=== PATIENT | male | born 1965 | race Caucasian/White ===

== ENCOUNTER 2020-01-27 12:10 | Outpatient (CLI) | payer OTHER, SELFPAY ==
--- NOTE | ~2020-01-27 | XR_ITS ---
EXAMINATION: XR abdomen/kub 1V INDICATION: Pelvic pain in a male TECHNIQUE: Supine views of the abdomen were obtained on 2 radiographs. COMPARISON: None FINDINGS: A moderate volume of colonic stool is present. A gas-filled bowel loop of the mid abdomen f elt to reflect tortuous colon. No abnormal calcifications are identified. There is mild osteoarthriti s of the hips. IMPRESSION: 1. Moderate volume of colonic stool. Reviewed, dictated and finalized at location A.
== END 2020-01-27 12:11 | disposition home or self-care (01) ==
PROVIDERS: PCP Family Medicine Sports Medicine
DX: R10.2 Pelvic and perineal pain (principal)
CPT/HCPCS: 74018

== ENCOUNTER 2020-06-10 15:56 | Outpatient (CLI) | payer OTHER, SELFPAY ==
--- NOTE | ~2020-06-10 | US_ITS ---
EXAMINATION: US retroperitoneal comp DATE: 06/10/2020 16:30 INDICATION: Chronic cystitis without hematuria. TECHNIQUE: Multiple ultrasound grayscale images of the kidneys were obtained. COMPARISON: None. FINDINGS: The right kidney measures 11.5 x 5.3 x 3.9 cm. The left kidney measures 11.2 x 4.6 x 4.6 cm. The kidn eys demonstrate normal parenchymal echogenicity. There is no hydronephrosis. There is a bladder diver ticulum on the right. IMPRESSION: 1. Bladder diverticulum on the right. Reviewed, dictated and finalized at location A.
== END 2020-06-10 15:57 | disposition home or self-care (01) ==
LOC: ANHIMG 15:58
PROVIDERS: Visit Provider Urology
DX: N30.20 Other chronic cystitis without hematuria (principal); N32.3 Diverticulum of bladder
CPT/HCPCS: 76770

== ENCOUNTER → 2021-06-18 07:49 | Outpatient (CLI) | payer OTHER, SELFPAY ==
--- NOTE | ~2021-06-18 | CT_ITS ---
EXAMINATION: CT abdomen pelvis wo con DATE: 06/18/2021 08:28 INDICATION: Chronic cystitis without hematuria TECHNIQUE: Computed tomography (CT) of the abdomen and pelvis was performed without intravenous contr ast. The dose-length product (DLP) was 571.97 mGy-cm. Automated exposure control and iterative recons truction technique were employed. COMPARISON: None FINDINGS: Minimal dependent atelectasis is present in the lung bases. The heart size is normal. Punct ate calcifications in an otherwise normal spleen likely represent healed granulomatous disease. The l iver, pancreas, gallbladder, and adrenal glands are normal. The kidneys are unremarkable. No stones a re identified in the kidneys, ureters, or bladder. There is no hydronephrosis or hydroureter. There i s a large diverticulum of the right lateral bladder wall. There is a small diverticulum of the left p osterolateral bladder wall. There is mild wall thickening of the urinary bladder. There is mild lumba r spondylosis. IMPRESSION: 1. Mild wall thickening of the urinary bladder, consistent with history of chronic cystitis. 2. Bladder diverticula. Reviewed, dictated and finalized at location B. IMPRESSION: 1. 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 2. Bladder diverticula.
--- NOTE | ~2021-06-18 | XR_ITS ---
EXAMINATION: XR abdomen/kub 1V INDICATION: Chronic cystitis without hematuria TECHNIQUE: Supine views of the abdomen were obtained on 2 radiographs. COMPARISON: 01/27/2020 FINDINGS: The bowel gas pattern is normal. No abnormal calcifications are identified. There is mild o steoarthritis of the hips. The visualized lung bases are clear. IMPRESSION: 1. No radiographic correlate for the patient's symptoms. Reviewed, dictated and finalized at location B.
== END ==
PROVIDERS: PCP Emergency Medicine; Visit Provider Urology
DX: M47.816 Spondylosis without myelopathy or radiculopathy, lumbar region (principal); N32.3 Diverticulum of bladder
CPT/HCPCS: 74018; 74176

== ENCOUNTER 2021-11-03 10:40 | Outpatient (CLI) | payer OTHER, SELFPAY ==
[2021-11-03 11:31] LABS: Basophils Percent Auto 0.4 % (0.2-1.2); Eosinophils Percent Auto 0.3 % (0-4.4); Hematocrit 43.4 % (42.0-52.0); Hemoglobin 15.1 g/dL (14.0-18.0); Immature Granulocyte Absolute 0.03 K/mm3 (0.00-0.031); Immature Granulocyte Percent A 0.4 % (0-0.5); Lymphocytes Absolute Auto 1.03 K/mm3 (0.9-3.2); Lymphocytes Percent Auto 15.2 % (18.3-44.2); Mean Corpuscular HGB Conc 34.8 g/dl (32-36); Mean Corpuscular Hemoglobin 32.1 pg (26-34); Mean Corpuscular Volume 92.1 fl (80-100); Mean Platelet Volume 9.5 fl (7.4-10.4); Monocytes Absolute Auto 0.7 K/mm3 (0.1-0.6); Monocytes Percent Auto 10.9 % (2.6-8.5); Neutrophils Absolute Auto 4.9 K/mm3 (1.3-6.7); Neutrophils Percent Auto 72.8 % (45.5-73.1); Platelet Count Result 195 k/mm3 (150-375); Red Blood Count 4.71 M/mm3 (4.6-6.20); Red Cell Distribution Width 13.1 % (11.5-14.5); White Blood Count 6.8 K/mm3 (4.5-10.0)
[2021-11-03 11:40] LABS: Estimated Glomerular Filt Rate > 60
== END 2021-11-03 10:41 | disposition home or self-care (01) ==
LOC: ANHLAB 10:44
PROVIDERS: PCP Emergency Medicine; Visit Provider Nurse Practitioner Adult Health
DX: N39.0 Urinary tract infection, site not specified (principal)
CPT/HCPCS: 36415; 82565; 85025; 87086

== ENCOUNTER 2023-02-02 10:04 | Observation (INO) | payer OTHER, SELFPAY ==
[2023-02-02] VITALS (7 sets, daily range): BP systolic 116–142; BP diastolic 75–86; PULSE 68–108; RESP 14–19; TEMP 36.1–36.6; O2SAT 99–100; BMI 22.8
--- NOTE | ~2023-02-02 | CT_ITS ---
EXAMINATION: CT abdomen pelvis w con DATE: 02/02/2023 12:35 INDICATION: Melanoma. Generalized abdominal discomfort. TECHNIQUE: Computed tomography (CT) of the abdomen and pelvis was performed with 100 cc Omnipaque 350 intravenous contrast. The dose-length product was 398.74 mGy-cm. Automated exposure control and iterative reconstruction technique were employed. COMPARISON: CT dated 06/18/2021 FINDINGS: Lung bases are unremarkable. Heart size normal. No significant pleural or pericardial effus ion. Fatty infiltration of the liver. The spleen, pancreas, adrenal glands and kidneys are unremarkab le. Gallbladder is present. Prostate gland is enlarged. There is a bladder diverticulum posteriorly. Mild bladder wall thickening. Colonic diverticulosis without evidence for acute diverticulitis. No fr ee air or free fluid. Gallbladder is present. There is atherosclerosis without aneurysm. No lymphaden opathy. Mildly accentuated chronic wedge-shaped appearance to the vertebrae at the thoracolumbar junc tion. IMPRESSION: 1. Mild bladder wall thickening. Cannot exclude cystitis. There is a bladder diverticulum along the p osterior margin of the bladder. Reviewed, dictated and finalized at location L. IMPRESSION: 1. Mild bladder wall thickening. Cannot exclude cystitis. There is a bladder di verticulum along the posterior margin of the bladder.
[2023-02-02 10:48] LABS: Alanine Aminotransferase 32 U/L (6-50); Alkaline Phosphatase 45 U/L (38-126); Anion Gap 2 mmol/L (8-16); Aspartate Amino Transferase 37 U/L (17-59); Bilirubin,Total 0.5 mg/dL (0.2-1.3); Blood Urea Nitrogen 19 mg/dL (9-20); Calcium 8.6 mg/dL (8.4-10.2); Carbon Dioxide 31 mmol/L (22-30); Chloride 102 mmol/L (98-107); Estimated CRCL calculation 84 ml/min; Estimated Glomerular Filt Rate > 60; Glucose 106 mg/dL (65-110); Potassium 4.5 mmol/L (3.4-5.0); Sodium 135 mmol/L (137-145)
[2023-02-02 10:50] LABS: INR 0.9; Partial Thromboplastin Time 30.3 SECONDS (22.3-36.8); Prothrombin Time 12.8 Seconds (11.1-14.7)
[2023-02-02 10:51] LABS: Basophils Percent Auto 0.5 % (0.2-1.2); Eosinophils Percent Auto 0.7 % (0-4.4); Hemoglobin 13.1 g/dL (14.0-18.0); Immature Granulocyte Absolute 0.02 K/mm3 (0.00-0.031); Immature Granulocyte Percent A 0.3 % (0-0.5); Lymphocytes Absolute Auto 1.32 K/mm3 (0.9-3.2); Lymphocytes Percent Auto 21.7 % (18.3-44.2); Mean Corpuscular HGB Conc 32.8 g/dl (32-36); Mean Corpuscular Hemoglobin 30.9 pg (26-34); Mean Corpuscular Volume 94.3 fl (80-100); Mean Platelet Volume 9.6 fl (7.4-10.4); Monocytes Absolute Auto 0.4 K/mm3 (0.1-0.6); Monocytes Percent Auto 6.3 % (2.6-8.5); Neutrophils Absolute Auto 4.3 K/mm3 (1.3-6.7); Neutrophils Percent Auto 70.5 % (45.5-73.1); Platelet Count Result 203 k/mm3 (150-375); Red Blood Count 4.24 M/mm3 (4.6-6.20); Red Cell Distribution Width 13.4 % (11.5-14.5); White Blood Count 6.1 K/mm3 (4.5-10.0)
--- NOTE | 2023-02-02 11:52 | ED.GENADULT ---
HPI - General Adult General Chief complaint: GI Bleed <WALT Church Last Filed: 02/02/23 19:49> Stated complaint: blood in stool <WALT Church Last Filed: 02/02/23 19:49> Time Seen by Provider: 02/02/23 11:13 <María Green PA-C - Last Filed: 02/02/23 19:49> History of Present Illness HPI narrative: 57-year-old male reports for evaluation of melena and hematochezia since last night. Patient states he had a bowel movement at 1999 with generalized abdominal discomfort . States when he looked in the toilet, his stool was dark and tarry with bright red blood in the toilet bowl and when he wiped. States this morning it happened again. He denies history of same. States he was told many years ago that he had GERD, no history of PUD. He had an EGD in 2009 that was normal and a colonoscopy greater than 10 years ago that was normal. He denies overt abdominal pain, chest discomfort when he has a bowel movement. Denies back pain, fever, chest pain or shortness of breath, syncope or lightheadedness. Of note, patient has to self cath his bladder due to an atrophic bladder. He gets frequent urinary tract infections. He was treated approximately 2 weeks ago with Augmentin for a UTI. He underwent bladder surgery in June to have multiple diverticuli removed, there is 1 remaining. <María Green PA-C - Last Filed: 02/02/23 19:49> Related Data Home medications: Home Medications Medication Instructions Recorded Confirmed fluoxetine 40 mg capsule 40 mg PO DAILY 02/02/23 02/02/23 <WALT Church Last Filed: 02/02/23 19:49> Allergies/adverse reactions: Allergies Allergy/AdvReac Type Severity Reaction Status Date / Time No Known Allergies Allergy Verified 02/02/23 16:23 <WALT Church Last Filed: 02/02/23 19:49> Review of Systems Review of Systems: CONSTITUTIONAL: Denies fever, chills EYES: Denies visual changes, redness, or discharge. ENT: Denies rhinorrhea, congestion, sore throat, or otalgia. CARDIOVASCULAR: Denies chest pain, palpitations, or edema. RESPIRATORY: Denies cough or dyspnea. GASTROINTESTINAL: See HPI GENITOURINARY: Denies dysuria or hematuria. SKIN: Denies rash or itching. MUSCULOSKELETAL: Denies back pain, joint pain, or myalgia. NEUROLOGIC: Denies headache, numbness, dizziness, or weakness. PSYCHIATRIC: Denies anxiety or depression. <María Green PA-C - Last Filed: 02/02/23 19:49> [facility] Past Medical History Medical History: Medical History (Updated 02/02/23 @ 23:30 by Rosibel Pena PA-C) Bladder diverticulum Gastroesophageal reflux disease Neurogenic bladder <María Green PA-C - Last Filed: 02/02/23 19:49> Surgical History Surgical History: Surgical History (Updated 02/02/23 @ 23:26 by Rosibel Pena PA-C) History of appendectomy History of bladder surgery Surgery for bladder diverticulum performed at [facility] in [place]. <María Green PA-C - Last Filed: 02/02/23 19:49> Family History Family History: Family History Father Malignant neoplasm of prostate Lymphoma <María Green PA-C - Last Filed: 02/02/23 19:49> Social History Social History: Social History (Updated 02/02/23 @ 20:37 by Rosibel Pena PA-C) Social History: Surrogate medical decision maker: Micaela Jones, spouse Code status: Full code. Smoking status: Former smoker Alcohol intake: current Drinks per week: 1 Substance use: never Lack of Transportation: No Lack of Food: Never True Current Housing: I Have Housing Concerned About Future Housing: No Difficulty Paying Gas/Electric Bills: No Difficulty Paying for Meds: No Currently Unemployed: No Education: Don't Know Difficulty w/ Childcare or Family Care: No Spiritual care concerns: No <María Green PA-C - Last Shai
[2023-02-02] MEDS: PANTOPRAZOLE SODIUM IV 40 MG VIAL 80 MG IV PUSH (12:22)
[2023-02-02] MEDS: SODIUM CHLORIDE 0.9% IV 1,000 ML 999 ML IV CONT (12:22)
[2023-02-02 12:31] LABS: Lactic Acid Reflex 1.1 mmol/L (0.7-2.0); Lipase 89 U/L (23-300)
[2023-02-02] MEDS: PANTOPRAZOLE SODIUM IV 80 MG in SODIUM CHLORIDE 0.9% IV 500 ML 50 MG IV CONT (13:00)
[2023-02-02 13:17] LABS: Appearance Urine Clear (Clear); Bilirubin Urine Negative (Negative); Blood Urine Negative (Negative); Color Urine Yellow (Yellow); Glucose Urine UA Negative (Negative); Ketones Urine Negative (Negative); Leukocyte Esterase Ur Negative LEU/UL (Negative); Nitrate Urine Negative (Negative); Protein Urine Negative (Negative); Specific Grav Ur 1.019 (1.001-1.035); Urobilinogen Urine 0.2 mg/dL (<2.0)
[2023-02-02 13:24] LABS: Add Urine Microscopic? NO
--- NOTE | 2023-02-02 14:01 | WPDGICN ---
Assessment and Plan Assessment and plan (1) Hematochezia: Code(s): K92.1 - Melena Status: Acute Assessment and Plan: He has never had this before. It began last night with passing black stool and noticing of red tinge at the edge of the stool in the bowl and also red blood when he wipes himself. He has had no abdominal pain. He may have diverticular bleed although because he has almost black stool as in the picture that he showed me, he may have an upper gastrointestinal bleed. We will schedule him for EGD and colonoscopy to be done tomorrow. He will be covered with PPI. Hemoglobin is 13.1 of present, down from 15.1 last year (2) Neurogenic bladder: Code(s): N31.9 - Neuromuscular dysfunction of bladder, unspecified Status: Acute Assessment and Plan: he must self catheterize every day because of urinary retention. GI Consult Note Consult date/time: 02/02/23 14:01 HPI: Woodrow Jones is a 57 year old male Who presented to the emergency room today with complaints of rectal bleeding. Last night he began to see blood in his stools. His stools were stringy and black, tarry and he would see scant red blood when he would wipe himself. The same thing happened again this morning. He has had no abdominal pain. He denies nausea or vomiting. His appetite has been good; there has been no weight loss. He denies chronic heartburn and dysphagia. He does not use NSAIDs on a regular basis. His last colonoscopy was at least 10 years ago. His only chronic medical problems the fact that he has a neurogenic bladder. He had surgery at [facility] to remove a diverticulum. He needs to self catheterize every day because of urinary retention. He has had several UTIs. Review of Systems Review of Systems: All systems reviewed & are unremarkable except as noted in HPI and below Meds Home Medications and Allergies Allergies Allergy/AdvReac Type Severity Reaction Status Date / Time No Known Allergies Allergy Verified 02/02/23 11:21 Vital Signs Vital Signs - 24 hr 02/02/23 10:06 02/02/23 11:22 02/02/23 12:21 Temperature 36.6 C Pulse Rate 92 81 76 Respiratory Rate 18 17 Blood Pressure 133/75 126/81 120/77 Pulse Oximetry 100 100 Oxygen Delivery Room Air 02/02/23 12:21 02/02/23 12:21 02/02/23 13:03 Temperature Pulse Rate 83 108 H 86 Respiratory Rate 19 Blood Pressure 137/81 116/80 142/80 H Pulse Oximetry 99 Oxygen Delivery Exam Const: General: cooperative and healthy appearing Orientation/consciousness: patient oriented x3 HENMT: Head: normal to inspection Ears: hearing grossly normal bilaterally Mouth: Yes Normal oral and palatal mucosa present Eyes: General: appearance normal, both eyes and all related structures Neck: Neck: normal visual inspection Chest: Chest palpation & inspection: normal inspection of the chest Resp: Effort & Inspection: normal respiratory effort Auscultation: clear to auscultation bilaterally Cardio: Rate: regular rate Rhythm: regular rhythm GI: Inspection: normal to inspection GI Palp: No abdominal tenderness, No Guarding due to palpation present (GI), Yes No hepatosplenomegaly present and No Hernia present Auscultation: normal bowel sounds Skin: General skin exam: normal color and no jaundice Neuro: General: patient oriented x3 Speech: normal speech Results Labs 02/02/23 10:32 02/02/23 10:32 Labs: Short CBC 02/02/23 Range/Units 10:32 WBC 6.1 (4.5-10.0) K/mm3 Hgb 13.1 L (14.0-18.0) g/dL Hct 40.0 L (42.0-52.0) % Plt Count 203 (150-375) k/mm3 BMP 02/02/23 10:32 Sodium 135 L Potassium 4.5 Chloride 102 Carbon Dioxide 31 H BUN 19 Creatinine 1.00 Glucose 106 Calcium 8.6 Liver Function 02/02/23 Range/Units 10:32 Total Bilirubin 0.5 (0.2-1.3) mg/dL AST 37 (17-59) U/L ALT 32 (6-50) U/L Alkaline Phosphatase 45 (38-126) U
[2023-02-02] MEDS: SODIUM CHLORIDE 0.9% IV 1,000 ML 125 ML IV CONT ×2 (14:06→21:52)
[2023-02-02 14:18] LABS: Hematocrit 36.1 % (42.0-52.0)
[2023-02-02] MEDS: BISACODYL 5 MG TABLET EC 20 MG PO (16:06)
--- NOTE | 2023-02-02 16:12 | ADMGEN ---
This patient, Woodrow Jones, was admitted to [facility] Surg Room 312-01. Patient/family oriented to hospital policies and general routines including ID bracelet, bed and alarms, visiting hours, pain management, procedures, bathroom and other care routines, personal items, smoking policy, room service/diet, and visiting hours. Information on how to activate the Rapid Response Team has been discussed. Patient/Family are encouraged to report perceived risks to care and to ask questions if they do not understand what they are told or what they should do. Report from María Elena in ER.
[2023-02-02] MEDS: polyethylene glycoL 3350 238 GM BOTTLE PO (16:33)
[2023-02-02 20:23] LABS: Hematocrit 38.5 % (42.0-52.0); Hemoglobin 12.8 g/dL (14.0-18.0)
--- NOTE | 2023-02-02 20:34 | PM.IMHP ---
H&P: HPI History of Present Illness Date/Time: 02/02/23 20:00 Chief Complaint: Blood in stool. Narrative: This is a remarkably healthy and very pleasant 57-year-old male with history of neurogenic bladder and bladder diverticula which was repaired at [facility] who presented to the emergency department via private vehicle from home for evaluation of blood in stool. The patient provides the following history. Last evening he had the sudden urge to have a bowel movement and he noticed that his stool was dark in color and admixed with bright red blood. A similar episode occurred this morning and he came in for evaluation. His bowel movements have been painless and he denies abdominal and rectal pain. He does not struggle or strain to have bowel movements and has no known history of hemorrhoids. Colonoscopy greater than 10 years ago was reportedly unremarkable. He had an upper endoscopy in 2009 for evaluation of hoarseness and that was also unremarkable. His vital signs were stable on arrival to the emergency department. Pertinent labs in the ED include a hemoglobin of 13.1, hematocrit 40%, and a lactic acid level 1.1. CT of the abdomen/pelvis did not show any acute findings. He is being admitted in this setting for close monitoring and GI consultation. At the time my evaluation he is resting comfortably and is doing a bowel prep. He continues to pass dark stools admixed with bright red blood. He denies syncope, near syncope, epigastric and abdominal pain, and bloating. Review of Systems Review of Systems: Reviewed. He has neurogenic bladder and does self catheterization. Prior to his surgery for bladder diverticulum, he was getting frequent urinary tract infections but that has improved remarkably since his surgery. He had his 1st urinary tract infection for quite some time about 2 weeks ago and he finished Augmentin. He does not have any symptoms to suggest GERD or indigestion. He does not take NSAIDs on a regular basis. Except as documented, all other systems were reviewed and are negative. [facility] Past Medical History Medical History (Updated 02/02/23 @ 23:30 by Rosibel Pena PA-C) Bladder diverticulum Gastroesophageal reflux disease Neurogenic bladder Surgical History Surgical History (Updated 02/02/23 @ 23:26 by Rosibel Pena PA-C) History of appendectomy History of bladder surgery Surgery for bladder diverticulum performed at [facility] in [place]. Family History Family History Father Malignant neoplasm of prostate Lymphoma Social History Social History (Updated 02/02/23 @ 20:37 by Rosibel Pena PA-C) Social History: Surrogate medical decision maker: Micaela Jones, spouse Code status: Full code. Smoking status: Former smoker Alcohol intake: current Drinks per week: 1 Substance use: never Lack of Transportation: No Lack of Food: Never True Current Housing: I Have Housing Concerned About Future Housing: No Difficulty Paying Gas/Electric Bills: No Difficulty Paying for Meds: No Currently Unemployed: No Education: Don't Know Difficulty w/ Childcare or Family Care: No Spiritual care concerns: No Meds Home Medications and Allergies Home Medications Medication Instructions Recorded Confirmed Type fluoxetine 40 mg capsule 40 mg PO DAILY 02/02/23 02/02/23 History Allergies Allergy/AdvReac Type Severity Reaction Status Date / Time No Known Allergies Allergy Verified 02/02/23 16:23 Vital Signs Vital Signs - 24 hr 02/02/23 10:06 02/02/23 11:22 02/02/23 12:21 Temperature 97.8 F Pulse Rate 92 81 76 Respiratory Rate 18 17 Blood Pressure 133/75 126/81 120/77 Pulse Oximetry 100 100 Oxygen Delivery Room Air 02/02/23 12:21 02/02/23 12:21 02/02/23 13:03 Temperature Pulse Rate 83 108 H 86 Respiratory Rate 19 Blood Pressure 137/81 116/80 142/80 H Pulse Oximetry 99 Oxygen
[2023-02-02] MEDS: MAGNESIUM CITRATE 300 ML BTL 180 ML PO (21:14)
[2023-02-03 06:00] VITALS: BP 130/83; PULSE 81; RESP 16; TEMP 36.6; O2SAT 99
[2023-02-03 06:24] LABS: Hematocrit 36.2 % (42.0-52.0); Hemoglobin 11.8 g/dL (14.0-18.0); Mean Corpuscular HGB Conc 32.6 g/dl (32-36); Mean Corpuscular Hemoglobin 30.4 pg (26-34); Mean Corpuscular Volume 93.3 fl (80-100); Mean Platelet Volume 9.7 fl (7.4-10.4); Platelet Count Result 178 k/mm3 (150-375); Red Blood Count 3.88 M/mm3 (4.6-6.20); Red Cell Distribution Width 13.3 % (11.5-14.5); White Blood Count 4.6 K/mm3 (4.5-10.0)
[2023-02-03 06:40] LABS: Anion Gap 2 mmol/L (8-16); Blood Urea Nitrogen 10 mg/dL (9-20); Calcium 7.4 mg/dL (8.4-10.2); Carbon Dioxide 28 mmol/L (22-30); Chloride 106 mmol/L (98-107); Estimated CRCL calculation 92 ml/min; Estimated Glomerular Filt Rate > 60; Glucose 95 mg/dL (65-110); Magnesium 2.3 mg/dL (1.6-2.3); Sodium 136 mmol/L (137-145)
[2023-02-03] MEDS: PANTOPRAZOLE SODIUM IV 40 MG VIAL IV PUSH (08:36)
[2023-02-03 13:36] VITALS: BP 127/81; BP 130/76; PULSE 71; PULSE 77; RESP 18; TEMP 36.3; TEMP 36.7; O2SAT 100; O2SAT 99
--- NOTE | 2023-02-03 13:38 | PC.NURSE ---
1325 pt off floor for procedure.
[2023-02-03] MEDS: LACTATED RINGERS 1,000 ML 150 ML IV CONT (13:39)
[2023-02-03 13:46] VITALS: BP 127/81; PULSE 77; RESP 18; TEMP 36.7; O2SAT 99
--- NOTE | 2023-02-03 13:51 | WPDANESEPPF ---
Anes - Initial Pre Proc Eval Procedure: Operation Date: 02/03/23 16:00 Proposed Procedures p Esophagogastroduodenoscopy & Colonoscopy - Rachid Leiva MD Date/Time: 02/03/23 13:51 Surgeon: Andre Nicole MD Pre Op Diagnosis: melena Patient Data Age: 57 Gender: M Height: 1.88 m Weight: 80.683 kg Last Vital Signs Temp 36.3 C L 02/03/23 13:36 Pulse 71 02/03/23 13:36 Resp 18 02/03/23 13:36 BP 130/76 02/03/23 13:36 Pulse Ox 100 02/03/23 13:36 O2 Del Method Room Air 02/03/23 13:36 Allergies Allergy/AdvReac Type Severity Reaction Status Date / Time No Known Allergies Allergy Verified 02/03/23 13:34 Home Medications Medication Instructions Recorded Confirmed Type fluoxetine 40 mg capsule 40 mg PO DAILY 02/02/23 02/02/23 History Laboratory Tests 02/02/23 02/02/23 02/03/23 14:12 20:14 05:42 WBC 4.6 K/mm3 (4.5-10.0) RBC 3.88 L M/mm3 (4.6-6.20) Hgb 12.0 L g/dL 12.8 L g/dL 11.8 L g/dL (14.0-18.0) (14.0-18.0) (14.0-18.0) Hct 36.1 L % 38.5 L % 36.2 L % (42.0-52.0) (42.0-52.0) (42.0-52.0) MCV 93.3 fl (80-100) MCH 30.4 pg (26-34) MCHC 32.6 g/dl (32-36) RDW 13.3 % (11.5-14.5) Plt Count 178 k/mm3 (150-375) MPV 9.7 fl (7.4-10.4) Sodium 136 L mmol/L (137-145) Potassium 4.0 mmol/L (3.4-5.0) Chloride 106 mmol/L (98-107) Carbon Dioxide 28 mmol/L (22-30) Anion Gap 2 L mmol/L (8-16) BUN 10 D mg/dL (9-20) Creatinine 0.90 mg/dL (0.7-1.3) Estim Creat Clear Calc 92 ml/min Estimated GFR > 60 (59 - ) Glucose 95 mg/dL (65-110) Calcium 7.4 L mg/dL (8.4-10.2) Magnesium 2.3 mg/dL (1.6-2.3) Patient hx anesthesia problems: none Family hx anesthesia problems: none Results Review: All pre-operative results and documents have been reviewed as part of the pre-operative evaluation. [facility] Past Medical History Medical History (Updated 02/02/23 @ 23:30 by Rosibel Pena PA-C) Bladder diverticulum Gastroesophageal reflux disease Neurogenic bladder Surgical History Surgical History (Updated 02/02/23 @ 23:26 by Rosibel Pena PA-C) History of appendectomy History of bladder surgery Surgery for bladder diverticulum performed at [facility] in [place]. Family History Family History Father Malignant neoplasm of prostate Lymphoma Social History Social History (Updated 02/02/23 @ 20:37 by Rosibel Pena PA-C) Social History: Surrogate medical decision maker: Micaela Jones, spouse Code status: Full code. Smoking status: Former smoker Alcohol intake: current Drinks per week: 1 Substance use: never Lack of Transportation: No Lack of Food: Never True Current Housing: I Have Housing Concerned About Future Housing: No Difficulty Paying Gas/Electric Bills: No Difficulty Paying for Meds: No Currently Unemployed: No Education: Don't Know Difficulty w/ Childcare or Family Care: No Spiritual care concerns: No Anes - Eval Final PreProcedure Day of Procedure 02/03/23 13:51 Patient weight: normal Heart: regular rate and rhythm Lungs: clear to auscultation and normal air movement Airway: Mallampati scale class 1 Neurological: alert and oriented Last oral intake: >/= 8 hours ASA classification: III Emergent: yes Anesthetic plan: proceed Anesthesia type and monitoring: general GIVS and standard monitoring Results Review: All pre-operative results and documents have been reviewed as part of the pre-operative evaluation. Informed Consent: The patient's anesthetic plan and its attendant risks and benefits were discussed with the patient/family/POA. Questions were solicited and answers provided to the satisfaction of the pa
--- NOTE | 2023-02-03 14:32 | SUR.OPER ---
EGD start 1435 end 1439 Colonoscopy start 1446
[2023-02-03 15:00] VITALS: BP 105/68; PULSE 75; RESP 16; O2SAT 99
[2023-02-03 15:10] VITALS: BP 101/65; PULSE 60; RESP 14; O2SAT 98
[2023-02-03 15:20] VITALS: BP 112/74; PULSE 73; RESP 18; O2SAT 100
--- NOTE | 2023-02-03 15:35 | PC.NURSE ---
1535 pt back in room from procedures.
[2023-02-03] MEDS: FLUoxetine HCL 20 MG CAPSULE 40 MG PO (15:39)
--- NOTE | 2023-02-03 16:40 | PM.DS ---
DS: Admitting Diagnosis Discharge Date 02/03/2023 Admitting Diagnosis GI bleed DS: Discharge Diagnosis Discharge Diagnosis (1) GI bleed: Code(s): K92.2 - Gastrointestinal hemorrhage, unspecified Status: Acute Assessment and Plan: Presented with bright red bloody stools ongoing 1 day prior to admission. Underwent EGD and colonoscopy as below. Rectal bleeding resolved. (2) Blood loss anemia: Code(s): D50.0 - Iron deficiency anemia secondary to blood loss (chronic) Status: Acute Assessment and Plan: Slight decline in H&H from baseline, felt to be secondary to rectal bleeding. H&H remained stable. Patient did not require blood transfusion. He was asymptomatic. Repeat H&H in 1 week and follow-up with PCP (3) Gastritis: Code(s): K29.70 - Gastritis, unspecified, without bleeding Status: Acute Assessment and Plan: EGD revealed reflux esophagitis and mild gastritis. Avoid NSAIDs. Started on Protonix 40 mg daily. H pylori testing pending at time of discharge, follow-up with GI (4) Diverticulosis: Code(s): K57.90 - Diverticulosis of intestine, part unspecified, without perforation or abscess without bleeding Status: Acute Assessment and Plan: Colonoscopy revealed multiple diverticula, felt to be the etiology for rectal bleeding. Avoid NSAIDs for 7 days. Increase dietary fiber. Avoid sitting on the commode for more than 2-3 minutes. Repeat colonoscopy in a couple of years per GI (5) Neurogenic bladder: Code(s): N31.9 - Neuromuscular dysfunction of bladder, unspecified Status: Chronic Assessment and Plan: Unchanged, patient continued with self catheterization DS: Summary Hospital Course Hospital Course: Woodrow Jones is a 57-year-old male with a history of neurogenic bladder who presented to the ED on 02/02/2023 with complaints of hematochezia ongoing for 1 day. On presentation to the ED, his vital signs were stable, he was afebrile, hemoglobin 11.8, hematocrit 36.2, additional laboratory workup unremarkable, CT of the abdomen/pelvis showed mild bladder wall thickening and bladder diverticulum, no acute intra-abdominal process. He was admitted to the hospitalist service for further evaluation and management was seen in consultation by Gastroenterology. Please see above for the details. Underwent EGD and colonoscopy on 02/03/2023 which revealed gastritis, reflux esophagitis, diverticular disease which was felt to be the etiology for rectal bleeding. H&H remained stable inpatient was asymptomatic. He will follow-up as an outpatient with his PCP and with GI. Admission back to his baseline state of health, determined to no longer require inpatient care and was discharged in hemodynamically stable condition on 02/03/2023. Time Spent with Patient Time attestation: Total time spent providing and/or coordinating discharge services: 40 minutes Time spent: Greater than 30 minutes Exam Narrative: General: Well-nourished, well-appearing 57-year-old male, sitting up in bed, comfortable, NARD Neuro: awake, alert and oriented x4, speech clear, no focal neuro deficits noted HEENMT: normocephalic, atraumatic, EOMI, sclerae anicteric Respiratory: clear to auscultation bilaterally, nonlabored breathing Cardio: regular rate, regular rhythm with S1-S2 Abdomen: nondistended, normoactive bowel sounds, soft, nontender to palpation Extremities: no edema, erythema, or tenderness to palpation Skin: no rashes or lesions, warm and dry Psych: appropriate mood and affect, judgment and insight intact DS: Data Data Completed and Pending Labs on day of discharge: Labs from last 24 hours 02/03/23 02/02/23 05:42 20:14 WBC 4.6 RBC 3.88 L Hgb 11.8 L 12.8 L Hct 36.2 L 38.5 L MCV 93.3 MCH 30.4 MCHC 32.6 RDW 13.3 Plt Count 178 MPV 9.7 Sodium 136 L Potassium 4.0 Chloride 106 Carbon Dioxide 28 Anion
== END 2023-02-03 17:00 | disposition home or self-care (01) ==
LOC: ANHED 13:52 → ANH3MEDSUR 14:28
PROVIDERS: Emergency Medicine; Internal Medicine Gastroenterology; Physician Assistant; Admitting Provider Family Medicine; Emergency Provider Physician Assistant; PCP Emergency Medicine; Visit Provider Family Medicine
PROC: 0DJ08ZZ Inspection of Upper Intestinal Tract, Via Natural or Artificial Opening Endoscopic (ICD-10-PCS; CPT 43235; principal; 2023-02-03 16:00)
DX: K21.00 Gastro-esophageal reflux disease with esophagitis, without bleeding (principal); K64.8 Other hemorrhoids; K29.70 Gastritis, unspecified, without bleeding; K57.30 Diverticulosis of large intestine without perforation or abscess without bleeding; N31.9 Neuromuscular dysfunction of bladder, unspecified; N32.3 Diverticulum of bladder; R07.89 Other chest pain; K21.9 Gastro-esophageal reflux disease without esophagitis; Z87.891 Personal history of nicotine dependence; F10.90 Alcohol use, unspecified, uncomplicated; Z79.899 Other long term (current) drug therapy; D50.0 Iron deficiency anemia secondary to blood loss (chronic)
CPT/HCPCS: 43239; 45378; 36415; 74177; 80048; 80053; 81003; 83605; 83690; 83735; 85014; 85018; 85025; 85027; 85610; 85730; 86850; 86900; 86901; 87081; 96361; 96374; 96375; 99285; A9270; C9113; G0378; J0131; J2704; J7030; J7040; J7120; Q9967

== ENCOUNTER 2023-04-05 07:41 | Emergency (ER) | payer OTHER, SELFPAY ==
--- NOTE | ~2023-04-05 | XR_ITS ---
XR abdomen/kub 1V 04/05/2023 08:45 INDICATION: Constipation TECHNIQUE: KUB COMPARISON: 06/18/2021 FINDINGS: Bowel gas pattern is normal. There is no evidence of free air, mass, organomegaly, ascites or obstruction. No abnormal calculi are seen. The bones appear intact. IMPRESSION: 1: No acute abdominal abnormality identified. Reviewed, dictated and finalized at location B.
[2023-04-05 07:47] VITALS: BP 144/84; PULSE 82; RESP 18; TEMP 36.3; O2SAT 100
[2023-04-05 08:10] VITALS: BP 131/87
[2023-04-05 08:18] LABS: Basophils Percent Auto 0.7 % (0.2-1.2); Eosinophils Absolute Auto 0.1 K/mm3 (0-0.3); Eosinophils Percent Auto 2.5 % (0-4.4); Hematocrit 43.2 % (42.0-52.0); Hemoglobin 14.3 g/dL (14.0-18.0); Immature Granulocyte Absolute 0.01 K/mm3 (0.00-0.031); Immature Granulocyte Percent A 0.2 % (0-0.5); Lymphocytes Absolute Auto 1.46 K/mm3 (0.9-3.2); Lymphocytes Percent Auto 33.1 % (18.3-44.2); Mean Corpuscular HGB Conc 33.1 g/dl (32-36); Mean Corpuscular Hemoglobin 30.7 pg (26-34); Mean Corpuscular Volume 92.7 fl (80-100); Mean Platelet Volume 9.2 fl (7.4-10.4); Monocytes Absolute Auto 0.4 K/mm3 (0.1-0.6); Monocytes Percent Auto 9.8 % (2.6-8.5); Neutrophils Absolute Auto 2.4 K/mm3 (1.3-6.7); Neutrophils Percent Auto 53.7 % (45.5-73.1); Platelet Count Result 245 k/mm3 (150-375); Red Blood Count 4.66 M/mm3 (4.6-6.20); Red Cell Distribution Width 12.9 % (11.5-14.5); White Blood Count 4.4 K/mm3 (4.5-10.0)
[2023-04-05 08:31] VITALS: BP 132/82
--- NOTE | 2023-04-05 09:32 | ED.GENADULT ---
HPI - General Adult General Chief complaint: Abdominal Pain Stated complaint: no BM in 8 days Time Seen by Provider: 04/05/23 07:56 History of Present Illness HPI narrative: Patient is a 57-year-old male who presents ER with constipation. He reports he has not had a bowel movement in 8 days. He woke up this morning with some nausea. No vomiting. No fevers or chills or sweats. He has been taking MiraLAX as well as Dulcolax and suppositories without obtaining a normal bowel movement. Reports had a mild temperature over the weekend but had no other symptoms. Related Data Home Medications Medication Instructions Recorded Confirmed fluoxetine 40 mg capsule 40 mg PO DAILY 02/02/23 02/02/23 Allergies Allergy/AdvReac Type Severity Reaction Status Date / Time No Known Allergies Allergy Verified 04/05/23 08:18 Review of Systems Review of Systems: All systems reviewed & are unremarkable except as noted in HPI and below Constitutional: Constitutional: Denies chills, Denies fatigue and Reports fever(s) ENT: Denies nasal congestion and Denies sore throat Cardiovascular: Cardiovascular: Denies chest pain, Denies rapid heart rate and Denies radiating jaw, neck or arm pain Respiratory: Respiratory: Denies cough and Denies dyspnea Gastrointestinal: Gastrointestinal: Denies abdominal pain, Reports constipation, Denies nausea and Denies vomiting Genitourinary: Genitourinary: Denies dysuria and Denies urinary frequency [facility] Past Medical History Medical History (Updated 04/05/23 @ 09:34 by Scout Luong MD) Bladder diverticulum Gastroesophageal reflux disease Neurogenic bladder Surgical History Surgical History (Updated 02/02/23 @ 23:26 by Rosibel Pena PA-C) History of appendectomy History of bladder surgery Surgery for bladder diverticulum performed at [facility] in [place]. Family History Family History Father Malignant neoplasm of prostate Lymphoma Social History Social History (Updated 02/02/23 @ 20:37 by Rosibel Pena PA-C) Social History: Surrogate medical decision maker: Micaela Jones, spouse Code status: Full code. Smoking status: Former smoker Alcohol intake: current Drinks per week: 1 Substance use: never Lack of Transportation: No Lack of Food: Never True Current Housing: I Have Housing Concerned About Future Housing: No Difficulty Paying Gas/Electric Bills: No Difficulty Paying for Meds: No Currently Unemployed: No Education: Don't Know Difficulty w/ Childcare or Family Care: No Spiritual care concerns: No Exam Narrative: GENERAL: Well-appearing, well-nourished, and in no acute distress. HEAD: Normocephalic, atraumatic. EYES: PERRL and EOMI. ENT: Mucous membranes moist. CHEST: Clear to auscultation. No respiratory distress. HEART: Regular rate and rhythm. Normal peripheral pulses. ABDOMEN: Soft, nontender, nondistended, normal bowel sounds. EXTREMITIES: Normal range of motion. No edema. SKIN: Warm, dry, no rash. NEURO: Alert and oriented x3. PSYCH: Normal mood and affect. Course Vital Signs Vital signs: Vital Signs Temperature 97.3 F L 04/05/23 07:47 Pulse Rate 82 04/05/23 07:47 Respiratory Rate 18 04/05/23 07:47 Blood Pressure 144/84 H 04/05/23 07:47 Pulse Oximetry 100 04/05/23 07:47 Oxygen Delivery Room Air 04/05/23 07:47 Temperature 97.3 F L 04/05/23 07:47 Pulse Rate 82 04/05/23 07:47 Respiratory Rate 18 04/05/23 07:47 Blood Pressure 132/82 04/05/23 08:31 Pulse Oximetry 100 04/05/23 07:47 Oxygen Delivery Room Air 04/05/23 07:47 Medical Decision Making MDM Narrative Medical decision making narrative: Medical decision making narrative: -Presentation: 57-year-old male presenting with constipation. -DDX includes but is not limited to: Bowel obstruction, constipation, diverticulitis. -Co-morbidities
[2023-04-05 09:45] LABS: Alanine Aminotransferase 27 U/L (6-50); Albumin Level 3.8 g/dL (3.5-5.1); Alkaline Phosphatase 48 U/L (38-126); Anion Gap 3 mmol/L (8-16); Aspartate Amino Transferase 31 U/L (17-59); Bilirubin,Total 0.5 mg/dL (0.2-1.3); Blood Urea Nitrogen 12 mg/dL (9-20); Calcium 8.6 mg/dL (8.4-10.2); Carbon Dioxide 27 mmol/L (22-30); Chloride 102 mmol/L (98-107); Estimated CRCL calculation 92 ml/min; Estimated Glomerular Filt Rate > 60; Glucose 105 mg/dL (65-110); Potassium 4.4 mmol/L (3.4-5.0); Sodium 132 mmol/L (137-145)
[2023-04-05 10:18] VITALS: BP 130/70; PULSE 82; RESP 18; TEMP 36.6; O2SAT 98
== END 2023-04-05 10:21 | disposition home or self-care (01) ==
PROVIDERS: Emergency Provider Emergency Medicine; PCP Emergency Medicine
DX: K59.00 Constipation, unspecified (principal); K21.9 Gastro-esophageal reflux disease without esophagitis; N31.9 Neuromuscular dysfunction of bladder, unspecified; Z87.891 Personal history of nicotine dependence
CPT/HCPCS: 36415; 74018; 80053; 85025; 99283